=== PATIENT | female | born 1970 | race Hispanic/Latino ===

== ENCOUNTER 2016-10-13 19:40 | Emergency (ER) | payer SELFPAY ==
[~2016-10-13] VITALS: Ht 147.3 cm; Wt 75.0 kg
[~2016-10-13 19:40] MED LIST: METF500T4 PO
[2016-10-13 19:44] VITALS: BP 143/85; PULSE 83; RESP 14; O2SAT 100
[2016-10-13] MEDS ORDERED: MULT-666 PO (20:35)
--- NOTE | 2016-10-13 20:37 | DRSVH ---
PROCEDURE: X-RAY CHEST ONE VIEW, PORTABLE ([id number]) INDICATIONS: cp TECHNIQUE: One view of the chest was acquired. COMPARISON: None. FINDINGS: Surgical changes and devices: None. Lungs and pleura: No pleural effusions or pneumothorax. Lungs are clear. Mediastinum: Mediastinal contours appear normal. Heart size is normal. Bones and chest wall: No suspicious bony lesions. Overlying soft tissues appear unremarkable. IMPRESSION: Normal for age, source of current symptoms is not seen. Dictated by: Amadeo Loco M.D. on 10/13/2016 at 20:36 Approved by: Amadeo Loco M.D. on 10/13/2016 at 20:36
[2016-10-13 20:47] LABS: BASOPHILS % (AUTO) 0.3 % (0-3); EOSINOPHILS % (AUTO) 2.3 % (0-5); MONOCYTES % (AUTO) 8.2 % (4-12); Mean Corpuscular Hemoglobin 29.7 pg (27.0-35.0); Mean Corpuscular Volume 86.1 fL (81-100); NEUTROPHILS % (AUTO) 49.3 % (40-74); Platelet Count 168 bil/L (150-400)
[2016-10-13 21:04] LABS: TROPONIN T < 0.010 ug/L (0.0-0.011)
--- NOTE | 2016-10-13 21:12 | ED.REPORT ---
HPI-Chest Pain 40 and Over Date of Service Oct 13, 2016 ED Provider: Rubio Mendoza MD Pt is a 46 y/o female with a hx of DM who presents to the ED c/o upper left chest pain that radiates to her neck and upper left back onset 4 days ago. The pain is positional and exacerbated by movement. The pt also states that the symptoms are worse in the morning. She denies a mechanism of injury. The pt experiences heartburn symptoms fairly frequently that precede similar chest pain, but has not experienced this in some time. Her pain today is also accompanied by paresthesia in her left arm, which concerned the pt. Pt denies nausea, vomiting, SOB, pleuritic pain, abdominal pain or a productive cough. The pt has not taken any medications to treat her symptoms. She notes that the arm tingling preceded the chest pain, and is made worse by neck position and is worse in the morning after sleeping. Nursing Notes Stated Complaint: CHEST, NECK PAIN Chief Complaint: Chest Pain Nursing Notes Reviewed: Yes Allergies: Coded Allergies: No Known Allergies (Unverified , 08/17/15) Scheduled Metformin (Metformin) 500 Mg Tablet 500 MG PO BID Multivitamin (Once Daily) 1 Each Tablet 1 EACH PO DAILY Omeprazole (Omeprazole) 20 Mg Tablet.dr 20 MG PO BID General Time Seen by MD: 21:07 Chief Complaint Chest pain Hx Obtained From: Patient, Tailer Out Arrived By: Walk-in Sudden in Onset?: No Onset Occurred: 4 days ago Symptom Duration: Constant Location: : Chest left Quality: Painful Radiation: : Neck: Shoulder left Severity: Current: Mild Severity: Maximum: Mild Recent Healthcare: No recent hospitalization Similar Sx Previous: Yes Past Medical History Past Medical History Reports: Diabetes mellitus Past Surgical History Family History noncontributory Smoking History Never Smoker Social History Alcohol Use: Denies alcohol use Drug Use: Denies drug use Other Social History: Good social support, Local resident Ambulatory Status Independent Review of Systems Paresthesia in L arm Respiratory: Denies: Non-productive cough, Pleuritic pain, Prod cough, clear, Shortness of breath Cardiovascular: Reports: Chest pain GI: Denies: Abdominal pain, Nausea, Vomiting Musculoskeletal: Reports: Back pain, Neck pain Skin: Denies Rash Complete sys rev & neg: except as marked. Physical Exam Initial Vital Signs Vital Signs (First) Date Time Temp Pulse Resp B/P Pulse Ox O2 Delivery O2 Flow Rate FiO2 10/13/16 19:44 36.2 83 14 143/85 100 Room Air Initial VS: Reviewed Head / Eyes: Atraumatic, Normocephalic ENT: Mucous membranes moist, Conjunctiva normal, No scleral icterus Skin: Warm, Dry, No cyanosis Neurologic: Alert, Oriented, Nonfocal Psychiatric: Mood/affect normal, Behavior normal, Normal thought content General/Constitutional: Awake, Alert, No acute distress, Cooperative, Not toxic appearing Respiratory / Chest: Atraumatic, Breath sounds NL, Breath sounds = bilat, No respiratory distress Cardiovascular: Heart rate NL, Regular rhythm, Heart sounds NL, No gallop, No murmurs, No rubs Abdomen: Atraumatic, Soft, Non-tender Neck: Atraumatic, Supple, Full range of motion, No JVD Lower Extremity / Pelvis / MS: Atraumatic, Full range of motion, No edema No cords Upper Extremity / MS: Atraumatic, Full range of motion, No edema Interpretation & Diagnostics Lab Results Interpretation Result Diagram: 10/13/16203810/13/162038 Test 10/13/16 20:39 White Blood Count 7.5th/mm3 (3.8-10.1) Red Blood Count 4.62mil/mm3 (3.90-5.20) Hemoglobin 13.7g/dL (12.0-15.6) Hematocrit 39.8% (35.0-46.0) Mean Corpuscular Volume 86.1fL (81-100) Mean Corpuscular Hemoglobin 29.7pg (27.0-35.0) Mean Corpuscular Hemoglobin Concent 34.4% (32.0-37.0) Red Cell Distribution Width 12.4% (12.3-15.4) Platelet Count 168bil/L (150-400) Neutrophils (%) (Auto) 49.3% (40-74) Lymphocytes (%) (Auto) 39.8% (14-46) Monocytes (%) (Auto) 8.2% (4-12) Eosinophils (%) (Auto) 2.3% (0-5) Basophils (%) (Auto) 0.3% (0-3) Sodium Level 138mEq/L (134-144) Potassium Level 3.6mEq/L (3.5-5.2) Chloride Level 101mEq/L (97-108) Carbon Dioxide Level 24mmol/L (18-29) Blood Urea Nitrogen 13mg/dL (6-24) Creatinine 0.39mg/dL (0.57-1.00) Estimat Glomerular Filtration Rate 255mL/min (>59) Glucose Level 111mg/dL (60-99) Calcium Level 9.6mg/dL (8.5-10.1) Magnesium Level 2.0mg/dL (1.6-2.6) Total Bilirubin 0.2mg/dL (0.0-1.2) Aspartate Amino Transf (AST/SGOT) 14U/L (0-50) Alanine Aminotransferase (ALT/SGPT) 14U/L (0-32) Alkaline Phosphatase 83U/L (25-150) Troponin T < 0.010ug/L (0.0-0.011) Total Protein 7.3g/dL (6.4-8.4) Albumin 4.5g/dL (3.4-5.0) Hold Ladd Top Tube Received (Received) ECG Interpretation ECG Interpretation: Sinus rhythm rate 87 Probable left atrial enlargement Time: 19:57 Interpreted by: ED physician X-Ray Chest Interpretation Chest Xray Interpretation: IMPRESSION: Normal for age, source of current symptoms is not seen. View: Portable, 1 view Interpretation / Wet Read by: Interpret - Radiologist Re-Eval/Medical Decision Med Decision/Clinical Course 46-year-old presents with a sharp chest pain that is positional induced by movement associated with heartburn. She has a long history of heartburn and no cardiac history. She does have diabetes. EKG is normal. Additional arm symptoms are fairly clearly radiculopathy. Discharge now for follow-up with PCP. Presumptive source of her discomfort is esophagitis and esophageal spasm. Additionally she has some cervical radiculopathy addressed with a neck collar. Discharged in stable condition. Source of Hx: Old records Time of Eval: 23:29 Patient Status: Condition improved Re-Evaluation/Progress Note: Patient rechecked. Discussed plan for discharge. Patient understands and agrees with plan. F/U instructions and RTER warnings given. All questions addressed at this time. Counseled Regarding: Diagnosis, Lab results, Need for follow-up, When/why to return to ED Discharge & Departure Primary Impression: Non-cardiac chest pain Additional Impressions: Gastroesophageal reflux disease Esophagitis presence: esophagitis presence not specified Qualified Code: K21.9 - Gastro-esophageal reflux disease without esophagitis Cervical radiculopathy Disposition: Home Discharge Condition All VS Reviewed: Yes Condition: Stable Patient Instructions: Esophageal Spasm (ED), Gastroesophageal Reflux Disease ( ED) Additional Instructions: This pain does not appear to be cardiac, and there is no evidence that you have an active cardiac problem. The character of the pain suggests this is from gastroesophageal reflux.(Acid reflux) Begin omeprazole twice daily for a month. Follow-up with your doctor in the office. Return if any worsening symptoms or new symptoms of concern Katie dolor no parece ser cardaco, y no hay evidencia de que usted tiene un problema cardaco activo. El carcter del dolor sugiere que esto es de reflujo gastroesofgico. (Reflujo cido) Comience el omeprazol dos veces al da jorge un mes. Seguimiento con moseley mdico en la oficina. Regresar si hay sntomas que empeoran o nuevos sntomas de preocupacin Referrals: [facility] (PCP) Scribe Attestation Portions of this note were transcribed by Emily Vela and Asael Diaz. I, Dr. Mendoza, personally performed the history, physical exam and medical decision-making; I reviewed and confirmed the accuracy of the information in the transcribed note. copies to: [facility] Christopher W MD Oct 13, 2016 21:12 Emily Vela Oct 13, 2016 21:21 ASAEL DIAZ Oct 13, 2016 23:21
[2016-10-13] MEDS ORDERED: Ketorolac 15 mg/mL Inj IVPUSH ONE (21:25)
[2016-10-13] MEDS ORDERED: Pantoprazole 40 mg ER24 Tablet PO ONE (21:25)
[2016-10-13] MEDS ORDERED: OMEP20TA86 PO (23:23)
[2016-10-13 23:49] VITALS: BP 113/65; PULSE 68; RESP 19; O2SAT 100
== END 2016-10-13 23:50 | disposition home or self-care (01) ==
LOC: SED 19:40
DX: R07.89 Other chest pain (principal); K21.9 Gastro-esophageal reflux disease without esophagitis; M54.12 Radiculopathy, cervical region; E11.9 Type 2 diabetes mellitus without complications; Z79.84 Long term (current) use of oral hypoglycemic drugs
CPT/HCPCS: 36415; 71010; 80053; 82948; 83735; 84484; 85025; 93005; 96374; 99285; J1885